=== PATIENT | male | born 1985 | race Caucasian/White ===

== ENCOUNTER 2018-07-18 13:59 | Outpatient (RCR) | payer OTHER ==
[2018-05-23 13:40] VITALS: BP 114/66
[2018-05-23 13:56] LABS: PLATELET COUNT, AUTOMATED 410 K/uL (150-450)
[2018-05-23 15:04] VITALS: BP 120/70
[2018-06-20 14:09] VITALS: BP 115/76
[2018-06-20] MEDS: NS(*) 0.9% 100 ML BAG 100 ML IVPB PRN (14:40)
[~2018-07-18 13:59] MED LIST: DEXTROSE 5%(*) 100 ML BAG 100 ML IVPB PRN; LIDOCAINE/SOD BICARB 8.4% SYR ID PRN; VEDOLIZUMAB 300 MG VIAL 300 MG in NS(*) 0.9% 250 ML BAG 250 ML IVPB ONE
[2018-07-18 14:40] VITALS: BP 122/73
[2018-07-18 14:41] LABS: PLATELET COUNT, AUTOMATED 365 K/uL (150-450)
[2018-07-18] MEDS: NS(*) 0.9% 100 ML BAG 100 ML IVPB PRN (14:43)
[2018-07-18] MEDS ORDERED: VEDOLIZUMAB 300 MG VIAL 300 MG in NS(*) 0.9% 250 ML BAG 250 ML IVPB ONE (15:00)
[2018-07-18 15:39] VITALS: BP 125/73
[2018-08-15] MEDS ORDERED: VEDOLIZUMAB 300 MG VIAL 300 MG in NS(*) 0.9% 250 ML BAG 250 ML IVPB ONE (12:45)
[2018-08-15 12:46] VITALS: BP 108/73
[2018-08-15] MEDS: NS(*) 0.9% 100 ML BAG 100 ML IVPB PRN (13:05)
[2018-08-15 13:37] VITALS: BP 112/69
== END 2018-08-21 ==
LOC: SPU 13:59
PROVIDERS: ATTEND Physician Assistant Medical
DX: K50.113 Crohn's disease of large intestine with fistula (principal)
CPT/HCPCS: 85025; 86140; 96365; J3380; J7050; 82040; 82247; 82310; 82374; 82435; 82565; 82947; 84075; 84132; 84155; 84295; 84450; 84460; 84520

== ENCOUNTER 2018-09-12 13:09 | Outpatient (RCR) | payer OTHER ==
[2018-09-12 13:32] VITALS: BP 121/85
[2018-09-12] MEDS ORDERED: VEDOLIZUMAB 300 MG VIAL 300 MG in NS(*) 0.9% 250 ML BAG 250 ML IVPB ONE (13:45)
[2018-09-12] MEDS ORDERED: DEXTROSE 5%(*) 100 ML BAG 100 ML IVPB PRN (13:50)
[2018-09-12] MEDS ORDERED: LIDOCAINE/SOD BICARB 8.4% SYR ID PRN (13:50)
[2018-09-12] MEDS ORDERED: NS(*) 0.9% 100 ML BAG 100 ML IVPB PRN (13:50)
[2018-09-12 13:59] LABS: PLATELET COUNT, AUTOMATED 270 K/uL (150-450)
[2018-09-12 14:52] VITALS: BP 114/77
== END 2018-10-08 13:34 | disposition home or self-care (01) ==
LOC: SPU 13:09
PROVIDERS: ATTEND Physician Assistant Medical
DX: K50.113 Crohn's disease of large intestine with fistula (principal)
CPT/HCPCS: 85025; 96365; J3380; J7050; 82040; 82247; 82310; 82374; 82435; 82565; 82947; 84075; 84132; 84155; 84295; 84450; 84460; 84520